=== PATIENT | female | born 1975 | race Caucasian/White ===

== ENCOUNTER → 2023-12-03 | Day surgery (SDC) | payer BC | LOC: CSHMAMMO 07:14 | PROVIDERS: ATTEND Nurse Practitioner | PROC: 0HB5XZX Excision of Chest Skin, External Approach, Diagnostic (ICD-10-PCS; principal; 2023-12-03) | DX: N60.91 Unspecified benign mammary dysplasia of right breast (principal); R92.2 Inconclusive mammogram; R92.1 Mammographic calcification found on diagnostic imaging of breast | CPT/HCPCS: 19081; 76098; 88305; A4648 ==